=== PATIENT | female | born 1945 | race Caucasian/White ===

== ENCOUNTER 2018-12-05 09:00 | Day surgery (SDC) | payer MEDICARE, BC ==
[~2018-12-05] VITALS: Ht 157.5 cm; Wt 68.5 kg
[~2018-12-05 09:00] MED LIST: ACET1TAB16 PO; ACET300T47 PO; AMLO5TAB6 PO; ASPI81TA26 PO; ASPI81TA85 PO; AVAP300T23 PO; BISO5TAB5 PO; CALCCHW19 PO; CRES40TA PO; FERR325T3 PO; FOLI1TAB11 PO; HYDR-2541 PO; HYDR200T3 PO; HYDR25TAB PO; META0.52 PO; METH2.5T48 PO; NS 1,000 ML IV ONE; PANT40TA3 PO; PARO15TA PO; PAXI30TA11 PO; PLAV1TAB2 PO; PRAV40TA2 PO; PRED1TABL PO; SYNT50TA PO; VITMTA PO
--- NOTE | 2018-12-05 10:18 | ROOR ---
Patient Name: Danae Chester Procedure Date: 12/05/2018 9:43 AM Date of : 1945 Age: 73 Room: [facility] Gender: Female Note Status: Finalized Procedure: Colonoscopy Indications: High risk colon cancer surveillance: Personal history of colonic polyps, Last colonoscopy: September 2015 Providers: Alejandro IRAHETA MD Referring MD: MARIA GUADALUPE BURGOS MD Requesting Provider: Medicines: Monitored Anesthesia Care Complications: No immediate complications. Procedure: Pre-Anesthesia Assessment: - The heart rate, respiratory rate, oxygen saturations, blood pressure, adequacy of pulmonary ventilation, and response to care were monitored throughout the procedure. The Colonoscope was introduced through the anus and advanced to the cecum, identified by appendiceal orifice and ileocecal valve. The colonoscopy was performed without difficulty. The patient tolerated the procedure well. The quality of the bowel preparation was good. Findings: The perianal and digital rectal examinations were normal. A 4 mm polyp was found in the ascending colon. The polyp was flat. The polyp was removed with a cold snare. Resection and retrieval were complete. Two 4 mm polyp was found in the splenic flexure. The polyp was sessile. The polyp was removed with a cold snare. Resection and retrieval were complete. Four hyperplastic polyps were found in the rectum and recto-sigmoid colon. The polyps were small in size. These polyps were removed with a cold snare. Resection and retrieval were complete. Multiple medium-mouthed diverticula were found in the sigmoid colon. Small Internal Hemorrhoids. Impression: - One 4 mm polyp in the ascending colon, removed with a cold snare. Resected and retrieved. - Two 4 - 5 mm polyp at the splenic flexure, removed with a cold snare. Resected and retrieved. - Four 3 - 4 mm polyps in the rectum and at the recto-sigmoid colon, removed with a cold snare. Resected and retrieved. - Diverticulosis in the sigmoid colon. - Small Internal Hemorrhoids. Recommendation: - Await pathology results. - Telephone endoscopist for pathology results in 2 weeks. - Repeat colonoscopy in 3 - 5 years for surveillance based on pathology results. Alejandro Iraheta MD Alejandro IRAHETA MD 12/05/2018 10:18:05 AM Electronically signed by Alejandro IRAHETA MD Number of Addenda: 0 Note Initiated On: 12/05/2018 9:43 AM Estimated Blood Loss: Estimated blood loss: none.
[2018-12-05 10:47] VITALS: BP 172/71
[2018-12-05] MEDS ORDERED: LIDOCAINE 2% INJ 100 MG/5 ML SDV (FOR ANES.) As Ordered ONE (10:56)
[2018-12-05] MEDS ORDERED: PROPOFOL 200 MG/20 ML VIAL As Ordered ONE (10:56)
== END 2018-12-05 10:49 | disposition home or self-care (01) ==
LOC: M OPP 09:00
PROVIDERS: ATTEND Internal Medicine Gastroenterology
DX: Z12.11 Encounter for screening for malignant neoplasm of colon (principal); Z86.010 Personal history of colon polyps; D12.2 Benign neoplasm of ascending colon; D12.3 Benign neoplasm of transverse colon; K62.1 Rectal polyp; D12.7 Benign neoplasm of rectosigmoid junction; K57.30 Diverticulosis of large intestine without perforation or abscess without bleeding; K64.8 Other hemorrhoids; K25.9 Gastric ulcer, unspecified as acute or chronic, without hemorrhage or perforation; I10 Essential (primary) hypertension; M06.9 Rheumatoid arthritis, unspecified; R01.1 Cardiac murmur, unspecified; E78.5 Hyperlipidemia, unspecified; I73.9 Peripheral vascular disease, unspecified; E03.9 Hypothyroidism, unspecified; K57.32 Diverticulitis of large intestine without perforation or abscess without bleeding; Z87.19 Personal history of other diseases of the digestive system; D64.9 Anemia, unspecified; M19.90 Unspecified osteoarthritis, unspecified site; M54.89 Other dorsalgia; M54.2 Cervicalgia; F32.9 Major depressive disorder, single episode, unspecified; Z78.0 Asymptomatic menopausal state; R06.83 Snoring; Z87.891 Personal history of nicotine dependence; Z88.8 Allergy status to other drugs, medicaments and biological substances; Z88.2 Allergy status to sulfonamides; Z79.82 Long term (current) use of aspirin; Z79.899 Other long term (current) drug therapy

== ENCOUNTER → 2020-11-04 | Outpatient (CLI) | payer MEDICARE, BC ==
[~2020-11-04] MED LIST changes: +AMLO1TAB24 PO; -AMLO5TAB6 PO; -ASPI81TA85 PO; +ASPI81TA86 PO; +BISO5TAB14 PO; -BISO5TAB5 PO; +HYDR-3490 PO; -HYDR25TAB PO; -NS 1,000 ML IV ONE; +PANT40TA29 PO; -PANT40TA3 PO; -PARO15TA PO; +PARO30TA4 PO
--- NOTE | 2020-11-04 17:38 | REPVR ---
PROCEDURE INFORMATION: Exam: MR Lumbar Spine Without Contrast Exam date and time: 11/04/2020 3:39 PM Age: 75 years old Clinical indication: Low back pain; Additional info: Spondylosis R/O hnp stenosis nerve compression TECHNIQUE: Imaging protocol: Multiplanar magnetic resonance images of the lumbar spine without intravenous contrast. COMPARISON: No relevant prior studies available. FINDINGS: Vertebral body heights are maintained. Mild Modic type 1 edematous degenerative endplate change at L5-S1. No cord compression. No abnormal cord signal. . 0.5 cm grade 1 anterolisthesis of L4 on L5. Multilevel degenerative disc height loss, most pronounced at L5-S1. Conus medullaris terminates at the L1 level. Paravertebral soft tissues are unremarkable. Right renal atrophy. Infrarenal abdominal aortic aneurysm measuring 3.3 cm in maximal transverse diameter. L1-L2: Facet hypertrophy causes mild bilateral foraminal narrowing.. L2-L3: Broad-based disc bulge and facet hypertrophy cause mild canal narrowing and mild bilateral foraminal narrowing. L3-L4: Broad-based disc bulge and facet hypertrophy cause moderate canal narrowing. Effacement of the bilateral lateral recesses with likely impingement upon the traversing bilateral L4 nerve roots. Moderate bilateral foraminal narrowing. L4-L5: Combination of broad-based disc bulge, anterolisthesis, and facet hypertrophy cause moderate to severe canal narrowing with crowding of the cauda equina. Moderate bilateral foraminal narrowing. L5-S1: Broad-based disc bulge and facet hypertrophy cause moderate canal narrowing with moderate to severe bilateral foraminal narrowing. IMPRESSION: 1. 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 2. Infrarenal abdominal aortic aneurysm measuring 3.3 cm in maximal transverse diameter. 3. Right renal atrophy. Electronically signed by: Anmol Wheeler On 11/04/2020 17:38:08 PM
== END ==
LOC: M PLARAD 14:55
PROVIDERS: ATTEND Physician Assistant
DX: M47.896 Other spondylosis, lumbar region (principal)

== ENCOUNTER 2021-05-16 08:58 | Day surgery (SDC) | payer MEDICARE, BC ==
[~2021-05-16] VITALS: Ht 157.5 cm; Wt 69.1 kg
[2021-05-16] MEDS ORDERED: LIDOCAINE 2% 100MG/5ML SDV (FOR ANES.) As Ordered ONE (10:38)
[2021-05-16] MEDS ORDERED: propofoL 500 MG/50 ML VIAL As Ordered ONE (10:38)
[2021-05-16] MEDS ORDERED: fentaNYL 100 MCG/2 ML INJECTION (J3010) As Ordered ONE (10:38)
--- NOTE | 2021-05-16 12:09 | ROOR ---
Patient Name: Danae Chester Procedure Date: 05/16/2021 11:49 AM Date of : 1945 Age: 76 Room: [facility] Gender: Female Note Status: Finalized Procedure: Upper GI endoscopy Indications: Hematochezia Providers: Alejandro Iraheta MD Referring MD: MARIA GUADALUPE BURGOS MD, Temo Guadarrama Md Requesting Provider: Medicines: Monitored Anesthesia Care Complications: No immediate complications. Procedure: Pre-Anesthesia Assessment: - The heart rate, respiratory rate, oxygen saturations, blood pressure, adequacy of pulmonary ventilation, and response to care were monitored throughout the procedure. The Endoscope was introduced through the mouth, and advanced to the second part of duodenum. The upper GI endoscopy was accomplished without difficulty. The patient tolerated the procedure well. Findings: The examined esophagus was normal. Mildly erythematous mucosa without bleeding was found in the gastric antrum. Biopsies were taken with a cold forceps for histology. The exam of the stomach was otherwise normal. The examined duodenum was normal. Impression: - Normal esophagus. - One 7 mm circular mildy erythematous mucosa in the antrum (dubious significance). Biopsied. - The stomach is otherwise normal. - Normal examined duodenum. Recommendation: - Continue present medications. - Observe patient's clinical course. - Telephone endoscopist for pathology results in 2 weeks. Procedure Code(s): --- Professional --- 94430, Esophagogastroduodenoscopy, flexible, transoral; with biopsy, single or multiple Diagnosis Code(s): --- Professional --- K92.1, Melena (includes Hematochezia) K31.89, Other diseases of stomach and duodenum CPT copyright 2019 [employer]. All rights reserved. The codes documented in this report are preliminary and upon director of automation review may be revised to meet current compliance requirements. Alejandro Iraheta MD Alejandro Iraheta MD 05/16/2021 12:09:27 PM Electronically signed by Alejandro Iraheta MD Number of Addenda: 0 Note Initiated On: 05/16/2021 11:49 AM Estimated Blood Loss: Estimated blood loss: none.
--- NOTE | 2021-05-16 12:37 | ROOR ---
Patient Name: Danae Chester Procedure Date: 05/16/2021 11:50 AM Date of : 1945 Age: 76 Room: [facility] Gender: Female Note Status: Finalized Procedure: Colonoscopy Indications: Hematochezia Providers: Alejandro Iraheta MD Referring MD: MARIA GUADALUPE BURGOS MD, Temo Guadarrama Md Requesting Provider: Medicines: Monitored Anesthesia Care Complications: No immediate complications. Procedure: Pre-Anesthesia Assessment: - The heart rate, respiratory rate, oxygen saturations, blood pressure, adequacy of pulmonary ventilation, and response to care were monitored throughout the procedure. The Colonoscope was introduced through the anus and advanced to the terminal ileum, with identification of the appendiceal orifice and IC valve. The colonoscopy was performed without difficulty. The patient tolerated the procedure well. The quality of the bowel preparation was good. Findings: The perianal and digital rectal examinations were normal. Multiple small and large-mouthed diverticula were found in the sigmoid colon and descending colon. There was evidence of diverticular spasm. Internal hemorrhoids were found during retroflexion. The hemorrhoids were small/medium-sized. A 6 mm polyp was found in the splenic flexure. The polyp was sessile. The polyp was removed with a cold snare. Resection and retrieval were complete. To prevent bleeding after the polypectomy, three hemostatic clips were successfully placed. There was no bleeding at the end of the procedure. The exam was otherwise without abnormality. Impression: - Moderate diverticulosis in the sigmoid and descending colons. There was evidence of diverticular spasm. - Small Internal hemorrhoids. - One 6 mm polyp at the splenic flexure, removed with a cold snare. Resected and retrieved. Clips were placed. - The examination was otherwise normal. Recommendation: - Return to referring physician as previously scheduled. - Telephone endoscopist for pathology results in 2 weeks. Procedure Code(s): --- Professional --- 35568, Colonoscopy, flexible; with removal of tumor(s), polyp(s), or other lesion(s) by snare technique Diagnosis Code(s): --- Professional --- K64.8, Other hemorrhoids K63.5, Polyp of colon K92.1, Melena (includes Hematochezia) K57.30, Diverticulosis of large intestine without perforation or abscess without bleeding CPT copyright 2019 [employer]. All rights reserved. The codes documented in this report are preliminary and upon globe mounter review may be revised to meet current compliance requirements. Alejandro Iraheta MD Alejandro Iraheta MD 05/16/2021 12:37:38 PM Electronically signed by Alejandro Iraheta MD Number of Addenda: 0 Note Initiated On: 05/16/2021 11:50 AM Estimated Blood Loss: Estimated blood loss: none.
[2021-05-16 13:10] VITALS: BP 191/81
== END 2021-05-16 13:04 | disposition home or self-care (01) ==
LOC: M OPP 08:58
PROVIDERS: ATTEND Internal Medicine Gastroenterology
DX: K63.5 Polyp of colon (principal); K57.30 Diverticulosis of large intestine without perforation or abscess without bleeding; K64.8 Other hemorrhoids; Z80.0 Family history of malignant neoplasm of digestive organs; K92.1 Melena; K31.89 Other diseases of stomach and duodenum; Z79.82 Long term (current) use of aspirin; Z79.899 Other long term (current) drug therapy; Z88.2 Allergy status to sulfonamides; Z88.8 Allergy status to other drugs, medicaments and biological substances; Z95.5 Presence of coronary angioplasty implant and graft
CPT/HCPCS: 43239; 45385; 88305; J3010

== ENCOUNTER 2021-10-26 11:16 | Inpatient (IN) | payer MEDICARE, BC ==
[~2021-10-26] VITALS: Ht 157.5 cm; Wt 65.6 kg
[~2021-10-26 11:16] MED LIST changes: -ACET1TAB16 PO; +ACET300T48 PO
[2021-10-26 12:25] LABS: HEMATOCRIT 29.1 % (36.0-47.0); HEMOGLOBIN 9.3 g/dl (12.0-15.5); MEAN CORPUSCULAR HEMOGLOBIN 30.4 pg (27.0-33.0); MEAN CORPUSCULAR VOLUME 95.1 fl (80.0-96.0); PLATELET COUNT, AUTOMATED 276 10^3/uL (150-450); RED BLOOD COUNT 3.06 10^6/uL (4.00-5.40); WHITE BLOOD COUNT 9.9 10^3/uL (4.0-10.0)
[2021-10-26 12:54] LABS: INR 1.23; PROTHROMBIN TIME 15.9 SECONDS (12.7-14.5)
[2021-10-26 12:59] LABS: ALBUMIN 3.4 GM/DL (3.2-5.2); ALT/SGPT 18 U/L (12-78); BILIRUBIN,TOTAL 0.4 MG/DL (0.2-1.0); BLOOD UREA NITROGEN 23 MG/DL (7-18); CALCIUM LEVEL 8.7 MG/DL (8.8-10.2); CARBON DIOXIDE LEVEL 23 MEQ/L (21-32); CHLORIDE LEVEL 110 MEQ/L (98-107); CREATININE FOR GFR 0.83 MG/DL (0.55-1.30); GLOMERULAR FILTRATION RATE > 60.0 (>39); GLUCOSE, FASTING 126 MG/DL (70-100); POTASSIUM SERUM 4.8 MEQ/L (3.5-5.1); SODIUM LEVEL 140 MEQ/L (136-145); TOTAL PROTEIN 6.8 GM/DL (6.4-8.2)
[2021-10-26 14:07] LABS: CK-MB VALUE MASS < 1.0 NG/ML (<3.6); CPK CREATINE PHOSPHOKINASE 57 U/L (26-192); MB/CK RELATIVE INDEX 1.75 (< OR =4)
[2021-10-26 14:52] LABS: RSV AMPLIFICATION NEGATIVE (NEGATIVE)
[2021-10-26 16:00] LABS: CK-MB VALUE MASS < 1.0 NG/ML (<3.6); CPK CREATINE PHOSPHOKINASE 53 U/L (26-192); MB/CK RELATIVE INDEX 1.89 (< OR =4)
[2021-10-26] MEDS ORDERED: LEVO50TA5 PO (16:24)
[2021-10-26] MEDS ORDERED: ROSU20TA5 PO (16:24)
[2021-10-26] MEDS ORDERED: XARE2.5T PO (16:24)
[2021-10-26] MEDS ORDERED: AMLO1TAB25 PO (16:24)
[2021-10-26] MEDS ORDERED: PANT40TA29 PO (16:24)
[2021-10-26] MEDS ORDERED: POTA1TAB14 PO (16:24)
[2021-10-26] MEDS ORDERED: NIFE30TA50 PO (16:24)
[2021-10-26] MEDS ORDERED: ACETAMINOPHEN TAB 650MG DOSE (2X325MG) PO PRN (17:15)
[2021-10-26] MEDS ORDERED: HOME MED LIST COMPLETE! XX SCH (17:30)
[2021-10-26 17:49] LABS: RED BLOOD COUNT 3.14 10^6/uL (4.00-5.40); WHITE BLOOD COUNT 9.8 10^3/uL (4.0-10.0)
[2021-10-26 17:50] LABS: HEMATOCRIT 29.8 % (36.0-47.0); HEMOGLOBIN 9.5 g/dl (12.0-15.5); MEAN CORPUSCULAR HEMOGLOBIN 30.3 pg (27.0-33.0); MEAN CORPUSCULAR HGB CONC 31.9 g/dl (32.0-36.5); MEAN CORPUSCULAR VOLUME 94.9 fl (80.0-96.0); PLATELET COUNT, AUTOMATED 264 10^3/uL (150-450)
[2021-10-26] MEDS ORDERED: ACETAMINOPH W/CODEINE #3 TAB UD PO PRN (17:55)
[2021-10-26 18:00] VITALS: BP 147/49
[2021-10-26 18:23] LABS: LDH LACTATE DEHYDROGENASE 451 U/L (84-246)
[2021-10-26] MEDS: ROSUVASTATIN 10 MG TAB (CRESTOR) PO SCH (20:08)
[2021-10-26] MEDS: PANTOPRAZOLE 40MG TAB (PROTONIX) PO SCH (20:08)
[2021-10-26] MEDS ORDERED: POTASSIUM CHLORIDE 10MEQ SR TABLET PO SCH (21:00)
[2021-10-26 22:00] VITALS: BP 108/58
[2021-10-26 23:08] LABS: HEMATOCRIT 27.4 % (36.0-47.0); HEMOGLOBIN 8.8 g/dl (12.0-15.5); MEAN CORPUSCULAR HEMOGLOBIN 30.3 pg (27.0-33.0); MEAN CORPUSCULAR HGB CONC 32.1 g/dl (32.0-36.5); MEAN CORPUSCULAR VOLUME 94.5 fl (80.0-96.0); PLATELET COUNT, AUTOMATED 229 10^3/uL (150-450); WHITE BLOOD COUNT 7.5 10^3/uL (4.0-10.0)
[2021-10-26 23:26] LABS: ERYTHROCYTE SEDIMENTATION RATE 34 mm/hr (0-30)
[2021-10-26 23:35] LABS: C REACTIVE PROTEIN QUANTITATIV < 0.30 MG/DL (0.00-0.30); FERRITIN 69 NG/ML (8-252); IRON (FE) 28 UG/DL (50-170); PERCENT SATURATION 9.8 % (13.2-45.0); TOTAL IRON BINDING CAPACITY 287 UG/DL (250-450)
[2021-10-27] MEDS: LEVOTHYROXINE 50MCG TABLET (0.05MG) PO SCH (05:41)
[2021-10-27 06:00] VITALS: BP 149/55
[2021-10-27 06:41] LABS: HEMATOCRIT 26.8 % (36.0-47.0); HEMOGLOBIN 8.7 g/dl (12.0-15.5); MEAN CORPUSCULAR HEMOGLOBIN 31.1 pg (27.0-33.0); MEAN CORPUSCULAR HGB CONC 32.5 g/dl (32.0-36.5); MEAN CORPUSCULAR VOLUME 95.7 fl (80.0-96.0); PLATELET COUNT, AUTOMATED 238 10^3/uL (150-450)
[2021-10-27 06:54] LABS: BLOOD UREA NITROGEN 15 MG/DL (7-18); CALCIUM LEVEL 9.1 MG/DL (8.8-10.2); CARBON DIOXIDE LEVEL 26 MEQ/L (21-32); CHLORIDE LEVEL 110 MEQ/L (98-107); CREATININE FOR GFR 0.77 MG/DL (0.55-1.30); GLOMERULAR FILTRATION RATE > 60.0 (>39); GLUCOSE, FASTING 106 MG/DL (70-100); POTASSIUM SERUM 3.3 MEQ/L (3.5-5.1); SODIUM LEVEL 142 MEQ/L (136-145)
[2021-10-27] MEDS: NIFEdipine 30 MG XL TAB PO SCH ×2 (09:00→09:40)
[2021-10-27 09:38] VITALS: BP 143/55
[2021-10-27] MEDS: predniSONE 1 MG TAB PO SCH (09:39)
[2021-10-27] MEDS: PARoxetine 10MG TABLET PO SCH (09:40)
[2021-10-27] MEDS: HYDROXYCHLOROQUINE 200 MG TAB PO SCH (09:40)
[2021-10-27] MEDS: POTASSIUM CHLORIDE 10MEQ SR TABLET PO SCH ×2 (09:40→20:02)
[2021-10-27] MEDS: MULTIVITAMINS/MINERALS THERAP 1 TAB PO SCH (09:40)
[2021-10-27] MEDS: PANTOPRAZOLE 40MG TAB (PROTONIX) PO SCH ×2 (09:40→20:02)
[2021-10-27] MEDS: FERROUS SULFATE 325MG TAB PO SCH (09:40)
[2021-10-27] MEDS: bisoproloL fumarate 5 MG TAB PO SCH (09:41)
[2021-10-27] MEDS: MUPIROCIN 2% OINT 22 GM TUBE TOP SCH (09:41)
[2021-10-27] MEDS: SUCRALFATE SUSP 1GM/10ML UD PO SCH ×4 (10:00→19:59)
[2021-10-27] MEDS ORDERED: E-Z-GAS II EFFERVESCENT PACKET (SODIUM BICARB./CITRIC ACID/SIMETHICONE) As Ordered ONE (10:09)
[2021-10-27] MEDS ORDERED: E-Z-HD 98% w/w 340GM SUSP BTL As Ordered ONE (10:09)
[2021-10-27] MEDS ORDERED: E-Z-PAQUE 96% w/w SUSP 176GM BTL As Ordered ONE (10:09)
[2021-10-27 11:35] LABS: HEMATOCRIT 28.9 % (36.0-47.0); HEMOGLOBIN 9.4 g/dl (12.0-15.5); MEAN CORPUSCULAR HEMOGLOBIN 31.2 pg (27.0-33.0); MEAN CORPUSCULAR HGB CONC 32.5 g/dl (32.0-36.5); PLATELET COUNT, AUTOMATED 255 10^3/uL (150-450); RED BLOOD COUNT 3.01 10^6/uL (4.00-5.40); WHITE BLOOD COUNT 7.2 10^3/uL (4.0-10.0)
[2021-10-27 14:00] VITALS: BP 146/67
[2021-10-27 19:53] VITALS: BP 136/50
[2021-10-27] MEDS: ROSUVASTATIN 10 MG TAB (CRESTOR) PO SCH (20:02)
[2021-10-28 05:17] VITALS: BP 149/60
[2021-10-28] MEDS: LEVOTHYROXINE 50MCG TABLET (0.05MG) PO SCH (05:20)
[2021-10-28 06:13] LABS: HEMATOCRIT 26.2 % (36.0-47.0); HEMOGLOBIN 8.4 g/dl (12.0-15.5); MEAN CORPUSCULAR HEMOGLOBIN 30.7 pg (27.0-33.0); MEAN CORPUSCULAR HGB CONC 32.1 g/dl (32.0-36.5); MEAN CORPUSCULAR VOLUME 95.6 fl (80.0-96.0); PLATELET COUNT, AUTOMATED 230 10^3/uL (150-450); RED BLOOD COUNT 2.74 10^6/uL (4.00-5.40); WHITE BLOOD COUNT 6.2 10^3/uL (4.0-10.0)
[2021-10-28 06:39] LABS: BLOOD UREA NITROGEN 12 MG/DL (7-18); CARBON DIOXIDE LEVEL 27 MEQ/L (21-32); CHLORIDE LEVEL 111 MEQ/L (98-107); CREATININE FOR GFR 0.76 MG/DL (0.55-1.30); GLOMERULAR FILTRATION RATE > 60.0 (>39); GLUCOSE, FASTING 109 MG/DL (70-100); POTASSIUM SERUM 3.8 MEQ/L (3.5-5.1); SODIUM LEVEL 145 MEQ/L (136-145)
[2021-10-28] MEDS ORDERED: SUCR1TA PO (09:02)
[2021-10-28] MEDS: PARoxetine 10MG TABLET PO SCH (09:38)
[2021-10-28] MEDS: MUPIROCIN 2% OINT 22 GM TUBE TOP SCH (09:38)
[2021-10-28] MEDS: FERROUS SULFATE 325MG TAB PO SCH (09:42)
[2021-10-28] MEDS: PANTOPRAZOLE 40MG TAB (PROTONIX) PO SCH (09:42)
[2021-10-28] MEDS: bisoproloL fumarate 5 MG TAB PO SCH (09:42)
[2021-10-28] MEDS: predniSONE 1 MG TAB PO SCH (09:43)
[2021-10-28] MEDS: POTASSIUM CHLORIDE 10MEQ SR TABLET PO SCH (09:43)
[2021-10-28 09:44] VITALS: BP 111/66
[2021-10-28] MEDS: NIFEdipine 30 MG XL TAB PO SCH (09:44)
[2021-10-28] MEDS: MULTIVITAMINS/MINERALS THERAP 1 TAB PO SCH (09:45)
[2021-10-28] MEDS: SUCRALFATE SUSP 1GM/10ML UD PO SCH (09:49)
[2021-10-28] MEDS: HYDROXYCHLOROQUINE 200 MG TAB PO SCH (09:50)
== END 2021-10-28 11:59 | disposition home or self-care (01) | DRG 378 ==
LOC: M ED 11:16 → M ED INP 17:12 → M MSPAV 17:57
PROVIDERS: ADMIT Internal Medicine; ATTEND Internal Medicine
DX: K29.71 Gastritis, unspecified, with bleeding (principal); D68.32 Hemorrhagic disorder due to extrinsic circulating anticoagulants; D64.9 Anemia, unspecified; Z95.1 Presence of aortocoronary bypass graft; I25.10 Atherosclerotic heart disease of native coronary artery without angina pectoris; M06.9 Rheumatoid arthritis, unspecified; I10 Essential (primary) hypertension; E03.9 Hypothyroidism, unspecified; Z95.2 Presence of prosthetic heart valve; F41.9 Anxiety disorder, unspecified; F32.A Depression, unspecified; Z79.899 Other long term (current) drug therapy; Z79.82 Long term (current) use of aspirin; Z88.2 Allergy status to sulfonamides; Z88.8 Allergy status to other drugs, medicaments and biological substances

== ENCOUNTER → 2022-10-17 | Outpatient (CLI) | payer MEDICARE, BC ==
[~2022-10-17] MED LIST changes: +AMLO1TAB25 PO; +CLOP75TA99 PO; +LEVO50TA5 PO; +NIFE30TA50 PO; -PAXI30TA11 PO; +PAXI30TA12 PO; -PLAV1TAB2 PO; +POTA-298 PO; +ROSU20TA5 PO; +SUCR1TA PO; +XARE2.5T PO
== END ==
LOC: M RAD 13:40
PROVIDERS: ATTEND Surgery Vascular Surgery
DX: I73.9 Peripheral vascular disease, unspecified (principal); Z95.828 Presence of other vascular implants and grafts

== ENCOUNTER → 2023-04-19 | Outpatient (CLI) | payer MEDICARE, BC ==
[~2023-04-19] MED LIST changes: -HYDR200T3 PO; +HYDR200T46 PO; +NIFE-3 PO; -NIFE30TA50 PO; -ROSU20TA5 PO; +ROSU20TA61 PO
== END ==
LOC: M RAD 11:52
PROVIDERS: ATTEND Nurse Practitioner Family
DX: I65.23 Occlusion and stenosis of bilateral carotid arteries (principal); I73.9 Peripheral vascular disease, unspecified

== ENCOUNTER → 2024-04-21 | Outpatient (CLI) | payer MEDICARE ==
[~2024-04-21] MED LIST changes: -ROSU20TA61 PO; +ROSU20TA86 PO
== END ==
LOC: M RAD 11:00
PROVIDERS: ATTEND Nurse Practitioner Family
DX: I73.9 Peripheral vascular disease, unspecified (principal); Z95.828 Presence of other vascular implants and grafts; R09.89 Other specified symptoms and signs involving the circulatory and respiratory systems